=== PATIENT | female | born 1960 | race Caucasian/White ===

== ENCOUNTER 2019-02-24 12:34 | Emergency (ER) | payer OTHER ==
[~2019-02-24] VITALS: Ht 162.6 cm; Wt 65.9 kg
[2019-02-24] MEDS ORDERED: SOD CHLORIDE 0.9% 1,000 ML IV STA (12:41)
[2019-02-24] MEDS ORDERED: morphine 4 MG/ML VIAL IV STA (12:41)
[2019-02-24] MEDS ORDERED: ONDANSETRON 4 MG INJ IV STA (12:41)
[2019-02-24 12:45] VITALS: Ht 162.6 cm; Wt 65.9 kg
[2019-02-24] MEDS ORDERED: NITROGLYCERIN (SL) 0.4 MG TAB SL PRN (13:00)
--- NOTE | 2019-02-24 14:16 | ERD ---
ER Documentation Chief Complaint Chief Complaint BIB RA88 for substernal CP onset while driving; 01/06 no rad no reprod HPI This is a 58-year-old female who presents to the emergency room with substernal chest pain. The patient had intermittent symptoms yesterday. Today while driving she noted substernal chest pressure that is pressure-like, 6 out of 10 with associated paresthesia to the left hand. The patient noted mild nausea but no significant diaphoresis. She denies any fevers or chills or cough or pleuritic pain. No calf swelling. She does describe a transient occipital headache but that was gradual and did not precede her chest pain or paresthesia. No slurred speech or motor weakness or deficit. Patient given aspirin and nitroglycerin prior to arrival. Moderate improvement. ROS All systems reviewed and are negative except as per history of present illness. Medications Home Meds No Active Prescriptions or Reported Meds Allergies Allergies: Coded Allergies: latex (Verified Allergy, Unknown, 02/24/19) PMhx/Soc History of Surgery: Yes (RINOPHLASTY,VARICOSE VEINS) Anesthesia Reaction: No Hx Neurological Disorder: No Hx Respiratory Disorders: No Hx Cardiac Disorders: No Hx Psychiatric Problems: No Hx Miscellaneous Medical Probl: No Hx Alcohol Use: No Hx Substance Use: No Hx Tobacco Use: No Smoking Status: Never smoker FmHx Family History: No diabetes Physical Exam Vitals Vital Signs Date Temp Pulse Resp B/P (MAP) Pulse Ox O2 O2 Flow FiO2 Time Delivery Rate 02/24/19 87 25 158/89 100 Nasal 2.0 13:38 (112) Cannula 02/24/19 Nasal 2 13:08 Cannula 02/24/19 98.3 105 18 166/97 99 12:45 (120) Physical Exam General: Uncomfortable Head: Normocephalic, atraumatic. Eyes: Pupils equally reactive, EOM intact ENT: Moist mucous membranes Neck: Supple, no lymphadenopathy Respiratory: Lungs clear bilaterally, no distress Cardiovascular: RRR, no murmurs, rubs, or gallops Abdominal: Soft, non-tender, non-distended, no peritoneal signs : Deferred MSK: No edema, no unilateral swelling, 5/5 strength Neurologic: Alert and oriented, moving all extremities, normal speech, no focal weakness, no cerebellar signs, no pronator drift, normal rapid alternating movements Skin: No rash Psych: Normal mood Result Diagram: 5/29/19 1247 02/24/19 1247 Results 24 hrs Laboratory Tests Test 02/24/19 12:47 White Blood Count 8.0 10^3/ul Red Blood Count 4.61 10^6/ul Hemoglobin 12.8 g/dl Hematocrit 39.4 % Mean Corpuscular Volume 85.5 fl Mean Corpuscular Hemoglobin 27.8 pg Mean Corpuscular Hemoglobin Concent 32.5 g/dl Red Cell Distribution Width 13.6 % Platelet Count 202 10^3/UL Mean Platelet Volume 11.3 fl Immature Granulocytes % 0.300 % Neutrophils % 49.3 % Lymphocytes % 41.6 % Monocytes % 7.0 % Eosinophils % 1.3 % Basophils % 0.5 % Nucleated Red Blood Cells % 0.0 /100WBC Immature Granulocytes # 0.020 10^3/ul Neutrophils # 3.9 10^3/ul Lymphocytes # 3.3 10^3/ul Monocytes # 0.6 10^3/ul Eosinophils # 0.1 10^3/ul Basophils # 0.0 10^3/ul Nucleated Red Blood Cells # 0.0 10^3/ul Sodium Level 139 mmol/L Potassium Level 3.9 mmol/L Chloride Level 105 mmol/L Carbon Dioxide Level 25 mmol/L Anion Gap 9 Blood Urea Nitrogen 16 mg/dl Creatinine 0.65 mg/dl Est Glomerular Filtrat Rate mL/min > 60 mL/min Glucose Level 94 mg/dl Calcium Level 9.5 mg/dl Troponin I < 0.012 ng/ml Current Medications Medications Dose Sig/Hien Start Time Status Last (Trade) Ordered Route PRN Stop Time Admin Dose Reason Admin Sodium 1,000 ml @ Q1H STAT 02/24/19 DC 02/24/19 Chloride 1,000 mls/hr IV 12:41 12:57 02/24/19 13:40 1 tab Q5M UP TO 3 02/24/19 Nitroglycerin DOSES PRN 13:00 SL .CHEST (Nitroglyceri PAIN n (Sl Tab) 0.4 Mg) Morphine 4 mg ONCE STAT 02/24/19 DC Sulfate IV 12:41 (morphine) 02/24/19 12:43 Ondansetron 4 mg ONCE STAT 02/24/19 DC HCl (Zofran IV 12:41 Inj) 02/24/19 12:43 Procedures/MDM EKG, MONITORS, & DIAGNOSTIC IMAGING: EKG: I reviewed and interpreted a 12-lead EKG. Rhythm: Normal sinus rhythm ST Changes: No contiguous ST segment elevations T waves: No contiguous T wave inversions Impression: No evidence of acute cardiac ischemia Repeat EKG: EKG: I reviewed and interpreted a 12-lead EKG. Rhythm: Normal sinus rhythm ST Changes: No contiguous ST segment elevations T waves: No contiguous T wave inversions Impression: No evidence of acute cardiac ischemia Chest x-ray: I reviewed and interpreted a 1 view of the chest Mediastinum: No enlargement Cardiac silhouette: No cardiomegaly Airspace: Clear lung knowles bilaterally without evidence of pneumothorax Bones: No evidence of fracture PROCEDURES: None LAB INTERPRETATION: * Negative troponin MEDICAL DECISION MAKING: The patient's history, physical exam and clinical presentation is concerning for possible cardiogenic etiology and acute coronary syndrome. Other etiologies such as stress anxiety, GI etiology are certainly possible. However the patient does describe substernal chest pressure with paresthesia to the left upper extre mity. The patient appears to be uncomfortable. Concern for ACS exists. Based on the patient's clinical exam and history and risk factors, I have a much lower clinical concern for pulmonary embolism, acute aortic dissection, pneumothorax, pneumonia, cardiac tamponade patient had paresthesia but this is not consistent with stroke. The patient has no focal deficits on clinical exam.. HEART Score: 3 MACE Rate: 1.7% Shared Decision Making: We had a conversation regarding risk stratification, M RICCARDO rate, and the risks, benefits, alternatives of disposition planning options. Disposition planning: Given ongoing chest discomfort and description of symptoms initially I would recommend inpatient hospitalization. ER COURSE: * Patient given nitroglycerin and morphine, pain is now 1-2 out of 10 * Given the patient's persistent symptoms, initial presentation I am concerned for possible ACS and despite negative work-up I would recommend hospitalization. The patient is a [facility] member and will be transferred to the facility for further work-up. CONSULTATION: None DISPOSITION PLAN: Accepting care team and consultations: I discussed the current laboratory data, diagnostic imaging and emergency care provided. [facility] Admitting team indication: Insurance directed Departure Diagnosis: Primary Impression: Chest pain Chest pain type: unspecified Qualified Codes: R07.9 - Chest pain, unspecified Condition: Stable VIPUL HERNADEZ MD February 24, 2019 14:16
[2019-02-24 15:05] VITALS: BP 130/88; PULSE 78; RESP 20
== END 2019-02-24 15:52 | disposition home or self-care (01) ==
LOC: E/R 12:34
DX: R07.9 Chest pain, unspecified (principal)
CPT/HCPCS: 36415; 71045; 80048; 84484; 85025; 93005; 99285; J7030